=== PATIENT | male | born 1955 | race Caucasian/White ===

== ENCOUNTER → 2018-11-09 11:58 | Outpatient (CLI) | payer MEDICARE, MEDICAID, SELFPAY ==
--- NOTE | 2018-11-09 12:04 | NM_ITS ---
History and Indications: Coronary artery disease, previous ME, hypertension, hyperlipidemia, chronic tobacco use, shortness of breath and fatigue Procedure: Patient exercised on Zack protocol 8 minutes, resting heart rate was 65 bpm resting blood pressure 115/65, with exercise maximum heart rate achieved was 1 29 bpm which is equal to 82% of the maximum predicted heart rate and a blood pressure was 1 5242. Test was started due to shortness of breath patient denied complained of chest pain. Patient has good exercise capacity achieved 10.1mets of workload on treadmill, the blood pressure response to exercise with adequate, patient did not achieve the target heart rate. Electrocardiogram: Resting electrocardiogram showed sinus rhythm possible inferior infarct age indeterminate, with exercise excessive baseline artifact seen, there is [address] segment depression noted from the baseline EKG. The EKG portion of the exercise Myoview is positive for ischemia. Cardiac stress and resting SPECT images: Cardiac stress and resting SPECT images were obtained using technetium 99 Myoview 32.8 mCi stress and 10.9 mCi at rest. Gated SPECT further analysis of segmental wall motion and calculation of the ejection fraction also done. Cardiac stress and resting SPECT images show uniform myocardial activity without segmental perfusion abnormality, computer derived ejection fraction 57% with no regional wall motion abnormality, right ventricle is normal size and contractility. Conclusion: 1. The EKG portion of the exercise Myoview is positive for ischemia, patient has good exercise capacity achieved 10.1mets of workload on treadmill, the blood pressure response to exercise was adequate, there was no exercise-induced chest discomfort, test was stopped due to shortness of breath. 2. No scintigraphic evidence of reversible ischemia seen at this level of exercise, computer derived ejection fraction is 57% with no regional wall motion abnormality, right ventricle is normal size and contractility.
--- NOTE | 2018-11-09 14:19 | HMH.ITSHM ---
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 []clopidogrl carvedilol digox levothyroxine atorvastatin pantoprazole lisinopril cardedilol
== END ==
PROVIDERS: PCP Family Medicine; Visit Provider Internal Medicine
DX: E07.9 Disorder of thyroid, unspecified (principal); E78.5 Hyperlipidemia, unspecified; I11.9 Hypertensive heart disease without heart failure; I25.10 Atherosclerotic heart disease of native coronary artery without angina pectoris; I65.29 Occlusion and stenosis of unspecified carotid artery; R04.0 Epistaxis; Z87.891 Personal history of nicotine dependence
CPT/HCPCS: 78452; 93017; A9502